=== PATIENT | male | born 1980 | race Caucasian/White ===

== ENCOUNTER 2021-11-13 06:19 | Day surgery (SDC) | payer OTHER ==
[~2021-11-13] VITALS: Ht 185.4 cm; Wt 118.8 kg
[~2021-11-13 06:19] MED LIST: NS 1,000 ML IV ONE; OMEP1CAP73 PO
[2021-11-13] MEDS ORDERED: propofoL 200 MG/20 ML VIAL As Ordered ONE (07:04)
[2021-11-13] MEDS ORDERED: LIDOCAINE 2% 100MG/5ML SDV (FOR ANES.) As Ordered ONE (07:09)
[2021-11-13 08:28] VITALS: BP 128/74
== END 2021-11-13 08:30 | disposition home or self-care (01) ==
LOC: M OPP 06:19
PROVIDERS: ATTEND Internal Medicine Gastroenterology
DX: K44.9 Diaphragmatic hernia without obstruction or gangrene (principal); K22.89 Other specified disease of esophagus; R07.89 Other chest pain